=== PATIENT | male | born 1995 | race Caucasian/White ===

== ENCOUNTER 2019-03-26 16:02 | Emergency (ER) | payer SELFPAY ==
[2019-03-26 16:04] VITALS: BP 111/71; PULSE 92; RESP 18; TEMP 36.7; O2SAT 99; BMI 22.8
[2019-03-26] MEDS: Penicillin Vk 250 MG Tablet 500 MG PO (17:04)
--- NOTE | 2019-03-26 17:10 | ED.DCSUM_ITS ---
- ER Visit Summary Date of Service: 03/26/19 Chief Complaint: Facial swelling History of Present Illness: The patient is a 23 M presenting with facial swelling. Patient states this started yesterday. He has had previous dental infections. He does not currently have a dentist. He denies fever. He states he took Aleve this morning and this relieved his pain. He has had some drainage at home. Denies other complaints. Physical Examination: Vitals are stable. Patient is afebrile. Alert no acute distress. HEENT exam widespread dental decay. No areas of fluctuance. Right upper incisor tender. No sublingual edema. Mild right maxillary swelling Neck is supple. Lungs are clear and equal bilaterally. Heart is regular rate and rhythm. Skin is warm and dry. Remainder of exam is unremarkable. Emergency Department Course and Treatment: Patient is given penicillin and naproxen. Advised to follow-up with dentist. He is given a dental referral list. Advised return ED if worsening complaints. Disposition: Discharge Impression: Odontalgia, dental infection This note was generated with [employer] dictation software. It may contain incorrect words, spelling, and punctuation that were not noted in review of the chart prior to signing ED Disposition - Plan for ED Patient: Referrals: NOT,DEFINED [Primary Care Provider] -
--- NOTE | 2019-03-26 17:10 | ED.DEP ---
ED Disposition - Plan for ED Patient: Instructions: ED Abscess Dental Prescriptions: Naproxen [Naprosyn] 500 mg PO BID PRN #20 tablet Penicillin V Potassium 500 mg PO 4X/DAY #40 tablet Referrals: NOT,DEFINED [Primary Care Provider] -
== END 2019-03-26 17:24 | disposition home or self-care (01) ==
LOC: ED 17:11
PROVIDERS: Emergency Provider Emergency Medicine
DX: K04.7 Periapical abscess without sinus (principal); K08.89 Other specified disorders of teeth and supporting structures; K02.9 Dental caries, unspecified; Z72.0 Tobacco use
CPT/HCPCS: 99283

== ENCOUNTER 2019-06-13 20:19 | Emergency (ER) | payer SELFPAY ==
[2019-06-13 20:22] VITALS: BP 149/78; PULSE 100; RESP 16; TEMP 36.6; O2SAT 98; BMI 22.1
[2019-06-13 20:38] VITALS: BP 124/84; PULSE 84; RESP 16; O2SAT 97
--- NOTE | 2019-06-13 20:41 | ED.RN ---
PATIENT STATES HE HAS INTERMITTENT SYNCOPAL EPISODES WITH POSITION CHANGES. PATIENT STATES THIS HAS BEEN GOING ON SINCE HE WAS 16 BUT HAS BEEN HAPPENING FOR FREQUENTLY IN THE LAST MONTH.
--- NOTE | 2019-06-13 21:07 | ED.DCSUM_ITS ---
- ER Visit Summary Date of Service: 06/13/19 Chief Complaint: Dizziness, dental pain, and left ear pain History of Present Illness: The patient is a 24 M who presents with dizziness, left lower dental pain, and left ear pain there is been getting worse over the past 3 days. Patient states his dizziness feels like he is going to pass out. Patient states this is worse with standing. Patient states he has had several episodes of this since he has been 16 years old. Patient states this is nothing new. Patient denies any chest pain or palpitations with this. Patient states he has pain over his left lower molar area. Patient states he has sharp pain in his left ear as well. Patient denies any difficulty breathing or difficulty swallowing. Patient states he has been taking ibuprofen and Tylenol with minimal relief. Physical Examination: Vital signs are stable. Patient is afebrile. Patient is in no acute distress. Pupils are equal, round, and reactive to light bilaterally. Extraocular muscles are intact. Conjunctiva is clear. Tympanic membranes are clear bilaterally. Oral mucosa is pink and moist. There are multiple dental caries. There is tenderness over the left lower premolars and molars. There is some mild gingival edema over this area. There is no d ischarge or drainage. There is no fluctuance. There is no sublingual edema or erythema. Heart was regular rate and rhythm. Lungs are clear and equal bilaterally. Cranial nerves II through XII are intact. There are no focal motor or sensory deficits noted. Test Results: Orthostatic vital signs were obtained and were normal. Emergency Department Course and Treatment: Patient was given a dose of clindamycin and ibuprofen here. Given a prescription for clindamycin because he is unable to tolerate penicillin. Patient was instructed to follow-up with a dentist in 5 to 7 days. Patient was instructed to follow-up with his primary care physician in 5 to 7 days. Patient understood and was agreeable with the plan. All questions were answered. Disposition: Discharge home Impression: Infected dental caries This note was generated with [employer] dictation software. It may contain incorrect words, spelling, and punctuation that were not noted in review of the chart prior to signing ED Disposition - Plan for ED Patient: Disposition: Home or Assisted Living Diagnosis: Infected dental caries Instructions: Dental Cavity, HYPOTENSION, Orthostatic Referrals: Care Physician,No Primary [Primary Care Provider] - Additional Instructions: Follow-up with the dentist in 5 to 7 days for reevaluation of your dental infection and cavities
[2019-06-13] MEDS: Ibuprofen 400 MG Tablet 800 MG PO (21:13)
[2019-06-13 21:14] VITALS: BP 113/82; BP 127/80; PULSE 72; PULSE 92
[2019-06-13 22:21] VITALS: BP 109/67; PULSE 68; RESP 16; O2SAT 98
== END 2019-06-13 22:22 | disposition home or self-care (01) ==
LOC: ED 21:15
PROVIDERS: Emergency Provider Emergency Medicine
DX: K04.7 Periapical abscess without sinus (principal); K02.9 Dental caries, unspecified; R42 Dizziness and giddiness; Z72.0 Tobacco use
CPT/HCPCS: 96365; 99284; J7050; A4216

== ENCOUNTER 2021-07-28 21:14 | Emergency (ER) | payer MEDICAID, SELFPAY ==
[2021-07-28 21:17] VITALS: BP 130/86; PULSE 111; RESP 22; TEMP 36.6; O2SAT 100; BMI 19.8
--- NOTE | 2021-07-28 22:11 | EKG12_ITS ---
Test Reason : DYSRHYTHMIA Blood Pressure : / mmHG Vent. Rate : 075 BPM Atrial Rate : 075 BPM P-R Int : 146 ms QRS Dur : 086 ms QT Int : 350 ms P-R-T Axes : 067 085 066 degrees QTc Int : 390 ms Normal sinus rhythm Normal ECG Confirmed by ALEXUS AMEZCUA, LESTER ([id number]), film editor supervisor BETTY GAMBLE ([id number]) on 07/29/2021 1:27:14 PM Referred By: TAYLOR Confirmed By:LESTER VAUGHAN MD
--- NOTE | 2021-07-28 22:12 | EDS_ITS ---
HPI History of Present Illness Chief Complaint: Anxiety Informant: patient Onset/Context/Timing Onset: Hours (2) Context: Gradual Onset (But relatively quickly) Timing: Continuous Quality: Panic attack Location: All over Current Severity: Severe Associated Symptoms Associated Symptoms: Shaky, chest tightness, heart racing Narrative Narrative: Patient states he used methamphetamine earlier, no other known substance use today, states that couple hours prior to exam, she started feeling very shaky and panicky, followed by chest discomfort tightness nonpleuritic and his heart racing, feeling very shaky like I am going to . [facility] Medical History (Updated 07/29/21 @ 02:[address] Celestino Skelton MD) Anxiety Depression Substance abuse no medical history Home Medications azithromycin 250 mg PO DAILY #4 tablet 07/29/21 [Rx Last Taken Unknown] Allergy/AdvReac Type Severity Reaction Status Date / Time Penicillins AdvReac Nausea/Vom/ Verified 07/28/21 21:19 Diarrhea Social History (Updated 07/28/21 @ 22:[address] Celestino Skelton MD) Smoking Status: Current every day smoker tobacco type: cigarettes substance use type: methamphetamine ROS ROS ED Constitutional Constitutional ED: Denies chills or fever(s) Eyes Eyes: Denies change in vision or diplopia ENT ENT ED: Denies rhinorrhea or sore throat Cardiovascular Cardiovascular: Reports as per HPI, chest pain, dyspnea and palpitations; Denies irregular heart rhythm or pedal edema Respiratory/Chest Respiratory/Chest: Reports dyspnea; Denies cough Gastrointestinal Gastrointestinal: Denies abdominal pain, diarrhea, nausea or vomiting Genitourinary Genitourinary ED: Denies dysuria or hematuria Musculoskeletal Musculoskeletal: Denies back pain or neck pain Integumentary Denies abscess or rash Neurologic Neurologic: Denies headache(s), paresthesias or weakness Psychiatric Psychiatric: Denies anxiety or suicidal thoughts EXAM Physical Exam Const Vital Signs: 07/28/21 21:17 07/28/21 23:44 07/29/21 00:38 Temperature 97.9 F Temperature Source Temporal Pulse Rate 111 H Respiratory Rate 22 H 18 Blood Pressure 130/86 H Blood Pressure Mean 100 Pulse Ox 100 Oxygen Delivery Method Room Air Room Air Room Air Positive well nourished and well developed General Appearance ED: well developed and NAD HEENT Reports moist mucous membranes normocephalic and atraumatic Eyes PERRL and EOMs intact bilaterally Neck full ROM, supple and no JVD Resp normal respiratory effort and clear to auscultation bilaterally Cardio regular rate, regular rhythm and no murmurs Cardio Narrative: Mild tachycardia, 110s. No splinting with deep inspiration. GI non-tender and non-distended Auscultation: normoactive bowel sounds Palpation: soft Back/Spine no CVA tenderness General Back: other FROM Extremity normal to inspection General Extremety ED: Negative for edema, pulses abnormal or tenderness General Extremity: Negative for edema or pulses abnormal Neuro oriented x3, CN's II-XII intact bilaterally and no sensory deficits noted Sensorium / Orientation: awake and alert Motor Exam: strength 5/5 throughout Psych cooperative, denies hallucinations, denies homicidal ideation and denies suicidal ideation Psych Narrative: Extremely anxious and agitated Speech: pressured Mood & Affect: anxious Thought Content: normal thought content Skin no rashes or lesions noted and no wounds MDM MDM MDM Narrative Medical decision making narrative: Patient was given IV Ativan, on reevaluation he is much more calm and not tachypneic. His work-up however shows a significant leukocytosis, and chest x-ray that may show a right lower lobe infiltrate. His D-dimer is within normal limits, troponin is normal and EKG is normal. I think it is alfred to err on the side of caution with this substance abuser in case he aspirated. He was given IV antibiotics after blood cultures obtained, his lactate ended up coming back within normal limits and his vital signs are stable with pulse ox 100% so I think he can be treated as an outpatient I discussed with him and his significant other they are comfortable with that plan. Lab Data Attestation: I reviewed the patient's lab results. Labs: Laboratory Results - last 24 hr 07/28/21 07/28/21 07/28/21 22:12 22:12 23:15 WBC 20.4 H RBC 5.49 Hgb 17.4 H Hct 49.6 MCV 90.3 MCH 31.7 MCHC 35.1 RDW Std Deviation 39.8 RDW Coeff of Ryland 11.9 Plt Count 252 MPV 10.6 Immature Gran % (Auto) 0.400 Neut % (Auto) 72.2 H Lymph % (Auto) 17.9 L Sunflower % (Auto) 8.9 Eos % (Auto) 0.3 Baso % (Auto) 0.3 Absolute Neuts (auto) 14.7 H Absolute Lymphs (auto) 3.65 Nucleated RBC % 0 Differential Comment SEE COMMENT Diff Path Review May foll Platelet Estimate ADEQUATE RBC Morphology N CHROM Anisocytosis RARE Macrocytosis RARE Ovalocytes RARE D-Dimer Quant (PE/DVT) <= 0.27 Sodium 136 Potassium 3.4 L Chloride 100 Carbon Dioxide 19.0 L Anion Gap 17 H BUN 15 Creatinine 1.35 H Estim Creat Clear Calc 70.37 Est GFR (MDRD) Af Amer 83 Est GFR (MDRD) Non-Af 69 BUN/Creatinine Ratio 11.1 Glucose 115 H Lactic Acid Calcium 10.1 Troponin I High Sens 7 07/28/21 23:55 WBC RBC Hgb Hct MCV MCH MCHC RDW Std Deviation RDW Coeff of Ryland Plt Count MPV Immature Gran % (Auto) Neut % (Auto) Lymph % (Auto) Sunflower % (Auto) Eos % (Auto) Baso % (Auto) Absolute Neuts (auto) Absolute Lymphs (auto) Nucleated RBC % Differential Comment Diff Path Review Platelet Estimate RBC Morphology Anisocytosis Macrocytosis Ovalocytes D-Dimer Quant (PE/DVT) Sodium Potassium Chloride Carbon Dioxide Anion Gap BUN Creatinine Estim Creat Clear Calc Est GFR (MDRD) Af Amer Est GFR (MDRD) Non-Af BUN/Creatinine Ratio Glucose Lactic Acid 1.2 Calcium Troponin I High Sens Radiography Diagnostic Testing: Radiology Impression Chest X-Ray 07/28/21 22:51 IMPRESSION: Hyperinflated lungs. Right basilar opacity, may be secondary to a confluence of shadows however cannot exclude underlying atelectasis and/or pneumonia. Electronically Signed: Franny Rivas MD at 23:10 EDT Tel , Service support , Rhythm Strip Rhythm Strip: Sinus Tach Rate: 116 Ectopy: None EKG Initial EKG: Attestation: I personally reviewed and interpreted this EKG as follows: Interpretation: Sinus Rhythm (75) and No Acute Injury Pattern Discharge Plan Triage Chief Complaint: Anxiety ED Provider: Celestino Skelton Dx/Rx/DC Orders Clinical Impression: Panic attack, Pneumonia, Methamphetamine abuse Instructions: ED Drug Abuse, ED Pneumonia (Adult) Prescriptions: New azithromycin [azithromycin] 250 MG tablet 250 mg PO DAILY Qty: 4 RF: 0 Primary Care Provider: Care Physician,No Primary Referrals: Guadalupe Gracia [NON-STAFF] - 5-7 Days Care Physician,No Primary [Primary Care Provider] - [facility] [STAFF PHYSICIAN] - (as needed for addiction help) Disposition Disposition: Home, Self Care
[2021-07-28] MEDS: LORazepam 2 MG/ML Syringe 1 MG IV (22:20)
[2021-07-28 22:34] LABS: Absolute Lymphocyte Count 3.65 X10^3/uL (0.83-4.51); Absolute Neutrophil Count 14.7 X10^3/uL (2.0-7.7); Basophil# 0.07 X10^3/uL; Basophil% 0.3 % (0-1); Eosinophil# 0.06 X10^3/uL; Eosinophils% 0.3 % (0-5); Hematocrit 49.6 % (40-54); Hemoglobin 17.4 g/dL (13.0-16.5); Lymphocyte # 3.65 X10^3/ul (0.83-4.51); Lymphocyte % 17.9 % (19-41); Mean Corp Hgb Conc 35.1 g/dL (32-36); Mean Corpuscular Hgb 31.7 pg (27.0-32.0); Mean Corpuscular Volume 90.3 fL (80-94); Mean Platelet Vol. 10.6 fl (6.2-12.0); Monocyte# 1.82 X10^3/uL; Monocyte% 8.9 % (0-10); NRBC Flagged by Analyzer 0 % (0-5); Neutrophil # 14.73 X10^3/uL (2.7-7.7); Neutrophil % 72.2 % (47-70); POSITIVE DIFFERENTIAL YES; Platelet Count 252 K/mm3 (150-450); RBC Distribution Width CV 11.9 % (11.6-14.6); RBC Distribution Width SD 39.8 fl (35.1-43.9); Red Blood Count 5.49 M/mm3 (4.6-6.2); White Blood Count 20.4 K/mm3 (4.4-11.0)
[2021-07-28 22:50] LABS: Anion Gap 17 (5-15); BUN 15 mg/dL (7-18); BUN/Creat Ratio 11.1 RATIO (10-20); Calcium,Total 10.1 mg/dL (8.5-10.1); Chloride 100 mmol/L (98-107); Creatinine, Serum 1.35 mg/dL (0.70-1.30); EST Glomerular Filtration Rate 69 mL/min (>60); Est Glom Filt Rate - Afr Amer 83 mL/min (>60); Estimated Creatinine Clearance 70.37 ml/min; Glucose 115 mg/dL (74-106); Potassium 3.4 mmol/L (3.5-5.1); Sodium Level 136 mmol/L (136-145); Troponin-I HS 7 pg/mL (3.0-78.0)
--- NOTE | 2021-07-28 22:51 | RAD_ITS ---
STUDY: X-RAY CHEST REASON FOR EXAM: Male, 26 years old. Chest pain TECHNIQUE: Single frontal view of the chest. COMPARISON: None. FINDINGS: The lungs are hyperinflated. There is a right basilar opacity. Normal size heart. Normal mediastinum and sarah. Normal visualized pulmonary arteries. Normal visualized aortic arch and descending thoracic aorta. Normal visualized thoracic spine. Normal visualized ribs, clavicles, and shoulders. There is no demonstrated abnormality of the visualized soft tissue structures of the upper abdomen. RAD/Chest 1 View (Portable) IMPRESSION: Hyperinflated lungs. Right basilar opacity, may be secondary to a confluence of shadows however cannot exclude underlying atelectasis and/or pneumonia. Electronically Signed: Franny Rivas MD at 23:10 EDT Tel , Service support ,
[2021-07-28 23:11] LABS: Differential Indicated SCAN CRITERIA MET
[2021-07-28 23:12] LABS: Anisocytosis RARE; Macrocytosis RARE; Ovalocyte RARE; Platelet Estimate ADEQUATE (ADEQ); Red Cell Morphology N CHROM NORMAL (NORM C&C)
[2021-07-28 23:42] LABS: D-Dimer Quantitative (DVT/PE) <= 0.27 FEU/ug/m (0.27-0.49)
--- NOTE | 2021-07-29 00:21 | NURSING ---
pt moving all over the bed. iv got pulled out.
[2021-07-29 00:38] VITALS: RESP 18
[2021-07-29 00:47] LABS: Lactic Acid 1.2 mmol/L (0.4-1.9)
[2021-07-29 03:01] VITALS: BP 112/57; PULSE 71; RESP 20; O2SAT 98
[2021-07-29 13:42] LABS: Pathologist Review Reviewed
== END 2021-07-29 03:04 | disposition home or self-care (01) ==
PROVIDERS: Emergency Provider Emergency Medicine
DX: F41.0 Panic disorder [episodic paroxysmal anxiety] (principal); J18.9 Pneumonia, unspecified organism; F15.10 Other stimulant abuse, uncomplicated; F17.210 Nicotine dependence, cigarettes, uncomplicated
CPT/HCPCS: 71045; 80048; 83605; 84484; 85025; 85379; 87040; 93005; 96365; 96367; 96375; 99285; J7030; J7050; A4216; J0696

== ENCOUNTER 2021-08-09 20:57 | Emergency (ER) | payer MEDICAID, SELFPAY ==
[2021-08-09 20:58] VITALS: BP 115/86; PULSE 86; RESP 18; TEMP 36.3; O2SAT 99; BMI 20.4
--- NOTE | 2021-08-09 22:04 | EKG12_ITS ---
Test Reason : DYSRYTHIA Blood Pressure : / mmHG Vent. Rate : 060 BPM Atrial Rate : 060 BPM P-R Int : 166 ms QRS Dur : 090 ms QT Int : 404 ms P-R-T Axes : 000 078 076 degrees QTc Int : 404 ms Normal sinus rhythm Normal ECG Confirmed by FREDIS AMEZCUA, JENNIFER ([id number]), supervising editor news reel BETTY GAMBLE ([id number]) on 08/12/2021 10:09:45 AM Referred By: MONICA Confirmed By:JENNIFER MCNEAL MD
--- NOTE | 2021-08-09 22:05 | EDS_ITS ---
HPI History of Present Illness Chief Complaint: Anxiety Narrative Narrative: 26-year-old male who admits to doing methamphetamine last night presenting with palpitations, anxiety, sensation of shortness of breath. He denies fever or cough. Patient states that he did not do methamphetamine today. He states he was cleaning up around his house and must of come into contact with it. He states for his anxiety takes nothing long-term. He states that otherwise he is physically healthy. He states he feels like he does not have a pulse and that he is lost. [facility] Medical History Anxiety Depression Substance abuse Home Medications hydroxyzine pamoate [Vistaril] 25 mg PO TID PRN #20 cap 08/09/21 [Rx Last Taken Unknown] Allergy/AdvReac Type Severity Reaction Status Date / Time Penicillins AdvReac Nausea/Vom/ Verified 07/28/21 21:19 Diarrhea Social History Smoking Status: Current every day smoker tobacco type: cigarettes substance use type: methamphetamine ROS ROS ED Constitutional Constitutional ED: Denies chills or fever(s) Eyes Eyes: Denies blurry vision or diplopia ENT ENT ED: Denies rhinorrhea or sore throat Cardiovascular Cardiovascular: Reports palpitations and racing heartbeat Respiratory/Chest Respiratory/Chest: Reports dyspnea; Denies cough or sputum Gastrointestinal Gastrointestinal: Denies abdominal pain, nausea or vomiting Genitourinary Genitourinary ED: Denies dysuria or hematuria Musculoskeletal Musculoskeletal: Denies arthralgias or myalgias Neurologic Neurologic: Denies headache(s) or paresthesias Psychiatric Psychiatric: Reports anxiety; Denies suicidal ideation or suicidal thoughts EXAM Physical Exam Const Vital Signs: 08/09/21 20:58 08/09/21 22:32 08/09/21 22:52 Temperature 97.3 F L Temperature Source Temporal Pulse Rate 86 66 Respiratory Rate 18 12 Blood Pressure 115/86 H 110/94 H Blood Pressure Mean 95 99 Pulse Ox 99 98 Oxygen Delivery Method Room Air Room Air Room Air Positive well nourished General Appearance ED: NAD HEENT Reports moist mucous membranes Negative for trauma Eyes PERRL and EOMs intact bilaterally Chest Wall inspection of chest normal and palpation of chest normal Resp normal respiratory effort and clear to auscultation bilaterally Cardio regular rate and regular rhythm GI normal to inspection, nondistended, normoactive bowel sounds Neuro oriented x3, CN's II-XII intact bilaterally and no sensory deficits noted Sensorium / Orientation: alert Motor Exam: strength 5/5 throughout Psych Psych Narrative: Anxious Skin no rashes or lesions noted MDM MDM MDM Narrative Medical decision making narrative: Patient presenting after using methamphetamine last evening. He does not admit to using any tonight. His urine tox was positive for methamphetamine and cannabinoids which he admits to. CBC is unremarkable. Renal function electrolytes are normal. Troponin is negative. I do not believe patient's symptoms are related to cardiac issue. His constellation of symptoms is due to methamphetamine use. Chest x-ray on my interpretation shows no acute cardiopulmonary process and the radiologist does agree. EKG shows a normal sinus rhythm with a ventricular rate of 60 bpm without sign of ischemic change. Patient feels improved after eating a meal. He has a sober ride to pick him up. I believe he is safe to be discharged home at this time. I do not believe he needs any other lab work or imaging. His exfianc? requested prescription for Vistaril form for anxiety. We did discuss the use of methamphetamine and how this could be triggering his anxiety. They a cknowledge understanding. Impression: 1. Anxiety 2. Methamphetamine abuse 3. Dyspnea Lab Data Attestation: I reviewed the patient's lab results. Labs: Laboratory Results - last 24 hr 08/09/21 08/09/21 08/09/21 22:12 22:15 22:15 WBC 11.5 H RBC 5.31 Hgb 17.0 H Hct 48.7 MCV 91.7 MCH 32.0 MCHC 34.9 RDW Std Deviation 40.6 RDW Coeff of Ryland 12.0 Plt Count 236 MPV 9.9 Immature Gran % (Auto) 0.300 Neut % (Auto) 70.3 H Lymph % (Auto) 21.7 [place] % (Auto) 7.3 Eos % (Auto) 0.1 Baso % (Auto) 0.3 Absolute Neuts (auto) 8.1 H Absolute Lymphs (auto) 2.50 Nucleated RBC % 0 Sodium 138 Potassium 3.7 Chloride 103 Carbon Dioxide 27.0 Anion Gap 8 BUN 12 Creatinine 0.99 Estim Creat Clear Calc 99.11 Est GFR (MDRD) Af Amer 119 Est GFR (MDRD) Non-Af 99 BUN/Creatinine Ratio 12.1 Glucose 108 H Calcium 9.8 Troponin I High Sens 6 Urine Opiates Screen NEGATIVE Urine Methadone Screen NEGATIVE Ur Barbiturates Screen NEGATIVE Ur Phencyclidine Scrn NEGATIVE Ur Amphetamines Screen POSITIVE H U Methamphetamin-MDMA NEGATIVE U Benzodiazepines Scrn NEGATIVE Urine Cocaine Screen NEGATIVE U Cannabinoids Screen POSITIVE H Ur Drug Screen Comment Ethyl Alcohol 08/09/21 22:15 WBC RBC Hgb Hct MCV MCH MCHC RDW Std Deviation RDW Coeff of Ryland Plt Count MPV Immature Gran % (Auto) Neut % (Auto) Lymph % (Auto) [place] % (Auto) Eos % (Auto) Baso % (Auto) Absolute Neuts (auto) Absolute Lymphs (auto) Nucleated RBC % Sodium Potassium Chloride Carbon Dioxide Anion Gap BUN Creatinine Estim Creat Clear Calc Est GFR (MDRD) Af Amer Est GFR (MDRD) Non-Af BUN/Creatinine Ratio Glucose Calcium Troponin I High Sens Urine Opiates Screen Urine Methadone Screen Ur Barbiturates Screen Ur Phencyclidine Scrn Ur Amphetamines Screen U Methamphetamin-MDMA U Benzodiazepines Scrn Urine Cocaine Screen U Cannabinoids Screen Ur Drug Screen Comment Ethyl Alcohol 4.0 Discharge Plan Triage Chief Complaint: Anxiety ED Provider: Juan Lim Dx/Rx/DC Orders Instructions: ED Anxiety Reaction Prescriptions: New hydroxyzine pamoate [Vistaril] 25 mg capsule 25 mg PO TID PRN (Reason: anxiety) Qty: 20 RF: 0 Primary Care Provider: Care Physician,No Primary Referrals: Windy Parra DO [STAFF PHYSICIAN] - As Needed Care Physician,No Primary [Primary Care Provider] - Disposition Disposition: Home, Self Care
[2021-08-09 22:18] LABS: Absolute Neutrophil Count 8.1 X10^3/uL (2.0-7.7); Basophil# 0.03 X10^3/uL; Basophil% 0.3 % (0-1); Eosinophil# 0.01 X10^3/uL; Eosinophils% 0.1 % (0-5); Hematocrit 48.7 % (40-54); Lymphocyte % 21.7 % (19-41); Mean Corp Hgb Conc 34.9 g/dL (32-36); Mean Corpuscular Volume 91.7 fL (80-94); Mean Platelet Vol. 9.9 fl (6.2-12.0); Monocyte# 0.84 X10^3/uL; Monocyte% 7.3 % (0-10); NRBC Flagged by Analyzer 0 % (0-5); Neutrophil % 70.3 % (47-70); Platelet Count 236 K/mm3 (150-450); RBC Distribution Width SD 40.6 fl (35.1-43.9); Red Blood Count 5.31 M/mm3 (4.6-6.2); White Blood Count 11.5 K/mm3 (4.4-11.0)
--- NOTE | 2021-08-09 22:24 | RAD_ITS ---
HISTORY: chest pain EXAMINATION/TECHNIQUE: XR Chest 1 View: 2 image AP chest COMPARISON: July 28, 2021 FINDINGS: LINES/DEVICES: None. LUNGS: No airspace consolidation. Unremarkable interstitium. No effusion. No pneumothorax. MEDIASTINUM: No cardiomegaly. MUSCULOSKELETAL: No acute osseous finding. RAD/Chest 1 View (Portable) IMPRESSION: No evidence of acute cardiopulmonary process. at 0010 Reported and signed by: Jeff Melchor MD Electronically Signed: Jeff Melchor MD at 0:08 EDT Tel , Service support ,
[2021-08-09 22:30] LABS: Amphetamine Urine VISTA POSITIVE (<1000 ng/mL); Barbiturate Urine VISTA NEGATIVE (< 200 ng/mL); Benzodiazepine Urine VISTA NEGATIVE (< 200 ng/mL); Cocaine Urine VISTA NEGATIVE (< 300 ng/mL); Ecstacy Urine VISTA NEGATIVE (< 500 ng/mL); Methadone Urine VISTA NEGATIVE (< 300 ng/mL); PCP Urine VISTA NEGATIVE (< 25 ng/mL); THC Urine VISTA POSITIVE (< 50 ng/mL); Vista UDS pH Range 7
[2021-08-09 22:34] LABS: Anion Gap 8 (5-15); BUN 12 mg/dL (7-18); BUN/Creat Ratio 12.1 RATIO (10-20); Calcium,Total 9.8 mg/dL (8.5-10.1); Chloride 103 mmol/L (98-107); Creatinine, Serum 0.99 mg/dL (0.70-1.30); EST Glomerular Filtration Rate 99 mL/min (>60); Est Glom Filt Rate - Afr Amer 119 mL/min (>60); Estimated Creatinine Clearance 99.11 ml/min; Glucose 108 mg/dL (74-106); Potassium 3.7 mmol/L (3.5-5.1); Sodium Level 138 mmol/L (136-145); Troponin-I HS 6 pg/mL (3.0-78.0)
--- NOTE | 2021-08-09 22:43 | ED.RN ---
NO OLD EKGS
[2021-08-09 22:52] VITALS: BP 110/94; PULSE 66; RESP 12; O2SAT 98
[2021-08-10] MEDS: hydrOXYzine PAM 25 MG Capsule PO (00:02)
[2021-08-10 00:03] VITALS: BP 125/80; PULSE 74; RESP 16; O2SAT 99
== END 2021-08-10 00:04 | disposition home or self-care (01) ==
PROVIDERS: Emergency Provider Student in an Organized Health Care Education/Training Program
DX: F41.9 Anxiety disorder, unspecified (principal); F15.10 Other stimulant abuse, uncomplicated; R06.02 Shortness of breath; R00.2 Palpitations; F17.210 Nicotine dependence, cigarettes, uncomplicated
CPT/HCPCS: 71045; 80048; 80307; 82077; 84484; 85025; 93005; 99285

== ENCOUNTER 2021-08-26 18:01 | Emergency (ER) | payer MEDICAID, SELFPAY ==
[2021-08-26 18:07] VITALS: BP 133/96; PULSE 99; RESP 17; TEMP 37.2; O2SAT 98; BMI 20.6
--- NOTE | 2021-08-26 18:43 | EKG12_ITS ---
Test Reason : DYSRHYTHMIA Blood Pressure : / mmHG Vent. Rate : 079 BPM Atrial Rate : 079 BPM P-R Int : 152 ms QRS Dur : 082 ms QT Int : 328 ms P-R-T Axes : 074 083 074 degrees QTc Int : 376 ms Normal sinus rhythm Normal ECG Confirmed by FREDIS AMEZCUA, JENNIFER ([id number]), editorial cartoonist BETTY GAMBLE ([id number]) on 09/01/2021 6:34:15 AM Referred By: DILCIA Confirmed By:JENNIFER MCNEAL MD
--- NOTE | 2021-08-26 18:44 | EX.ED.DYSGE1 ---
HPI History of Present Illness Chief Complaint: Headache PFSH PFS Medical History Anxiety Depression Substance abuse Home Medications hydroxyzine pamoate [Vistaril] 25 mg PO TID PRN #20 cap 08/09/21 [Rx Last Taken Unknown] Allergy/AdvReac Type Severity Reaction Status Date / Time Penicillins AdvReac Nausea/Vom/ Verified 08/26/21 18:02 Diarrhea Social History Smoking Status: Current every day smoker tobacco type: cigarettes substance use type: methamphetamine EXAM Physical Exam Const Vital Signs: 08/26/21 18:07 Temperature 99.0 F Temperature Source Temporal Pulse Rate 99 Respiratory Rate 17 Blood Pressure 133/96 H Blood Pressure Mean 108 Pulse Ox 98 Oxygen Delivery Method Room Air Discharge Plan Triage Chief Complaint: Headache ED Provider: Chris Valle Dx/Rx/DC Orders Prescriptions: No Action hydroxyzine pamoate [Vistaril] 25 mg capsule 25 mg PO TID PRN (Reason: anxiety) Qty: 20 RF: 0 Primary Care Provider: Care Physician,No Primary
--- NOTE | 2021-08-26 18:48 | EX.ED.DYSGE1 ---
HPI History of Present Illness Chief Complaint: Headache Detail of Chief Complaint: Headache for the last 3 or 4 days Informant: patient Narrative Narrative: Patient presents to the emergency department with multiple complaints today. Patient states that she he has had a headache for the last 3 to 4 days. Patient states that he was seen in the emergency department 2 weeks ago and started on Vistaril for anxiety. Patient states that about a month ago he relapsed on meth and had anxiety related to that. Patient complains now of lightheadedness and fatigue and falling asleep yesterday while at work. Patient states that he stopped taking his Vistaril several days ago but he continues to feel poorly. He describes some chest tightness. Patient feels like he cannot get a full breath out. Patient complains of left eye twitching since the weekend. He complains of continued lightheadedness and bilateral ear pain. He describes a tightness around his head and ibuprofen is not helping the pain. Prior similar symptoms: No PFSH PFSH Medical History Anxiety Depression Substance abuse Allergy/AdvReac Type Severity Reaction Status Date / Time Penicillins AdvReac Nausea/Vom/ Verified 08/26/21 18:02 Diarrhea Social History Smoking Status: Current every day smoker tobacco type: cigarettes substance use type: methamphetamine ROS ROS ED ROS Narrative Dizziness, fatigue Constitutional Constitutional ED: Reports systems reviewed and no addt'l complaints, except as documented; Denies body ache(s), change in weight or chills Eyes Eyes: Denies acute decrease in peripheral vision, change in vision, double vision or loss of vision ENT ENT ED: Reports none; Denies ear pain, lip swelling, loss taste/smell, neck pain, otalgia or sore throat Cardiovascular Cardiovascular: Reports none and chest pain; Denies abdominal pain, chest pain with activity, leg edema, lightheadedness, palpitations, rapid heart rate or syncope Respiratory/Chest Respiratory/Chest: Reports none and dyspnea; Denies change in mental status, dry cough, hemoptysis, shortness of breath at rest or shortness of breath with exertion Gastrointestinal Gastrointestinal: Reports none; Denies abdominal pain, change in stool character, diarrhea, hematemesis, hematochezia, melena, rectal bleeding or vomiting Genitourinary Genitourinary ED: Reports none; Denies abdominal discomfort, anuria, dysuria, genital pain or polyuria Musculoskeletal Musculoskeletal: Reports none; Denies arthralgias, back pain, difficulty walking, extremity pain, muscle weakness or myalgias Integumentary Reports none; Denies abscess or rash Neurologic Neurologic: Reports none and headache(s); Denies abnormal gait, confusion, focal weakness, frequent falls, loss of vision, numbness, paresthesias, radicular pain, vertigo or weakness Psychiatric Psychiatric: Reports systems reviewed and no addt'l complaints, except as documented and none; Denies behavioral changes, confusion, difficulty concentrating, hallucinations, suicidal ideation, tactile hallucinations or visual hallucinations Endocrine Endocrinology: Denies none, cold intolerance, excessive sweating, fatigue or heat intolerance Hematologic/Lymphatic Hematologic/Lymphatic: Reports none; Denies anemia, easy bleeding or easy bruising Allergic/Immunologic Allergic/Immunologic ED: Denies as per HPI, none, lip swelling, mouth swelling, throat swelling, tongue swelling or hives EXAM Physical Exam Const Vital Signs: 08/26/21 18:07 Temperature 99.0 F Temperature Source Temporal Pulse Rate 99 Respiratory Rate 17 Blood Pressure 133/96 H Blood Pressure Mean 108 Pulse Ox 98 Oxygen Delivery Method Room Air Positive well nourished and well developed General Appearance ED: well developed and NAD HEENT Reports TM's clear and moist mucous membranes normocephalic and atraumatic; Negative for trauma or tenderness Tympanic Membrane ED: Yes TM's clear Eyes PERRL and EOMs intact bilaterally General Eye ED: Negative for pale conjunctiva or scleral icterus Neck no lymphadenopathy, supple and no JVD General: Negative for tenderness Chest Wall inspection of chest normal and palpation of chest normal Chest: Negative for tenderness Resp normal respiratory effort and clear to auscultation bilaterally Effort and Inspection: Negative for respiratory distress or pain with movement Auscultation: Negative for rhonchi, wheezes or diminished lung sounds Cardio regular rate, regular rhythm, S1 normal heart sound, S2 normal heart sound and no murmurs Peripheral Pulses: pulses 2+ throughout GI normal to inspection, nondistended, normoactive bowel sounds, soft to palpation, non-tender, non-distended and no masses Back/Spine no CVA tenderness and no thoracic nor lumbar tenderness Extremity normal to inspection General Extremety ED: Negative for edema General Extremity: Negative for edema Neuro oriented x3, CN's II-XII intact bilaterally, no sensory deficits noted and gait normal Neuro Narrative: Finger-nose and heel arriaga testing within normal limits, negative Romberg, negative for drift, fundi benign Sensorium / Orientation: awake, alert, oriented to person, oriented to place and oriented to time Motor Exam: strength 5/5 throughout and strength abnormal Psych mental status grossly normal Skin no rashes or lesions noted and no wounds MDM MDM MDM Narrative Medical decision making narrative: Patient arrival. Patient was given Reglan, Benadryl, Toradol, and a liter saline fluid bolus. His headache eventually resolved. Patient was able to sleep. His lab work-up otherwise unremarkable. I suspect a lot of his symptomatology likely related to anxiety. He had an appointment with primary care physician tomorrow. Patient has Vistaril at home and cannot tolerate Ativan therefore I will not prescribe anything further at this time for his anxiety and he will see his primary care physician tomorrow. Lab Data Attestation: I reviewed the patient's lab results. Labs: Laboratory Results - last 24 hr 08/26/21 08/26/21 18:50 18:50 WBC 10.2 RBC 5.15 Hgb 16.4 Hct 47.0 MCV 91.3 MCH 31.8 MCHC 34.9 RDW Std Deviation 40.8 RDW Coeff of Ryland 12.1 Plt Count 205 MPV 10.0 Immature Gran % (Auto) 0.300 Neut % (Auto) 74.4 H Lymph % (Auto) 19.3 [place] % (Auto) 5.6 Eos % (Auto) 0.1 Baso % (Auto) 0.3 Absolute Neuts (auto) 7.6 Absolute Lymphs (auto) 1.97 Nucleated RBC % 0 Sodium 140 Potassium 4.1 Chloride 107 Carbon Dioxide 29.0 Anion Gap 4 L BUN 9 Creatinine 1.00 Estim Creat Clear Calc 99.02 Est GFR (MDRD) Af Amer 119 Est GFR (MDRD) Non-Af 98 BUN/Creatinine Ratio 9.0 L Glucose 106 Calcium 9.3 Troponin I High Sens 6 EKG Initial EKG: Attestation: I personally reviewed and interpreted this EKG as follows: Comments: Sinus rhythm with a ventricular rate of 79 bpm with no acute ST segment changes. Discharge Plan Triage Chief Complaint: Headache ED Provider: Chris Valle Dx/Rx/DC Orders Clinical Impression: Cephalalgia, Anxiety Instructions: ED Anxiety Reaction, ED Headache Unspecified Primary Care Provider: Care Physician,No Primary Referrals: Care Physician,No Primary [Primary Care Provider] - Activity Restrictions/Additional Instructions: See your primary care physician tomorrow as you have an appointment with them. Disposition Disposition: Home, Self Care
[2021-08-26] MEDS: DiphenhydrAMINE 50 MG/ML Syringe 25 MG IV (18:56)
[2021-08-26] MEDS: 0.9% Normal Saline 1,000 ML 1000 ML IV (18:56)
[2021-08-26] MEDS: Ketorolac 30 MG/ML Syringe IV (18:57)
[2021-08-26 18:59] LABS: Absolute Lymphocyte Count 1.97 X10^3/uL (0.83-4.51); Absolute Neutrophil Count 7.6 X10^3/uL (2.0-7.7); Basophil# 0.03 X10^3/uL; Basophil% 0.3 % (0-1); Eosinophil# 0.01 X10^3/uL; Eosinophils% 0.1 % (0-5); Hemoglobin 16.4 g/dL (13.0-16.5); Lymphocyte # 1.97 X10^3/ul (0.83-4.51); Lymphocyte % 19.3 % (19-41); Mean Corp Hgb Conc 34.9 g/dL (32-36); Mean Corpuscular Hgb 31.8 pg (27.0-32.0); Mean Corpuscular Volume 91.3 fL (80-94); Monocyte# 0.57 X10^3/uL; Monocyte% 5.6 % (0-10); NRBC Flagged by Analyzer 0 % (0-5); Neutrophil # 7.61 X10^3/uL (2.7-7.7); Neutrophil % 74.4 % (47-70); Platelet Count 205 K/mm3 (150-450); RBC Distribution Width CV 12.1 % (11.6-14.6); RBC Distribution Width SD 40.8 fl (35.1-43.9); Red Blood Count 5.15 M/mm3 (4.6-6.2); White Blood Count 10.2 K/mm3 (4.4-11.0)
[2021-08-26] MEDS: Metoclopramide 10 MG/2 ML Vial IV (18:59)
[2021-08-26 19:16] LABS: Anion Gap 4 (5-15); BUN 9 mg/dL (7-18); Calcium,Total 9.3 mg/dL (8.5-10.1); Chloride 107 mmol/L (98-107); EST Glomerular Filtration Rate 98 mL/min (>60); Est Glom Filt Rate - Afr Amer 119 mL/min (>60); Estimated Creatinine Clearance 99.02 ml/min; Glucose 106 mg/dL (74-106); Potassium 4.1 mmol/L (3.5-5.1); Sodium Level 140 mmol/L (136-145); Troponin-I HS 6 pg/mL (3.0-78.0)
[2021-08-26 20:39] VITALS: BP 111/66; PULSE 75; RESP 16; O2SAT 98
== END 2021-08-26 20:40 | disposition home or self-care (01) ==
PROVIDERS: Emergency Provider Emergency Medicine
DX: R51.9 Headache, unspecified (principal); F41.9 Anxiety disorder, unspecified; F17.210 Nicotine dependence, cigarettes, uncomplicated
CPT/HCPCS: 80048; 84484; 85025; 87426; 93005; 96361; 96374; 96375; 99285; J7030

== ENCOUNTER 2021-10-26 12:11 | Emergency (ER) | payer MEDICAID, SELFPAY ==
[2021-10-26 12:11] VITALS: BP 202/187; PULSE 58; RESP 19; TEMP 35.1; O2SAT 97; BMI 20.5
--- NOTE | 2021-10-26 12:41 | CT_ITS ---
STUDY: CT ABDOMEN AND PELVIS WITHOUT CONTRAST REASON FOR EXAM: Male, 26 years old. Left flank pain. METH abuse. RADIATION DOSAGE (If Supplied By Facility): CTDIvol = ( 6.07 ) mGy, DLP = ( 309.5 ) mGycm TECHNIQUE: Transaxial images were obtained from the dome of the diaphragm to the symphysis pubis without oral contrast, and without intravenous contrast. Sagittal and coronal images were reconstructed. Individualized dose optimization techniques were used for this CT. COMPARISON: None. FINDINGS: The visualized lung bases are unremarkable. The visualized portions of the heart are within normal limits. Normal liver. Normal gallbladder and extrahepatic biliary system. Normal spleen. Normal pancreas. Normal bilateral adrenal glands. Normal right kidney. Tiny calculus in the upper and mid calyces of the left kidney. Mild degree of left hydronephrosis and left hydroureter due to a 2.5 mm calculus in the distal portion of the left ureter just proximal to the UV junction. Normal visualized stomach. Normal small intestine. Normal colon. The appendix is visualized and appears normal. Normal abdominal aorta. Normal inferior vena cava. Normal retroperitoneum. Normal urinary bladder. Normal abdominal wall. Normal osseous structures. CT/Abdomen/Pelvis without Cont IMPRESSION: 2.5 mm calculus in the distal portion of left ureter just proximal to the ureterovesical junction causing mild degree of left hydronephrosis and hydroureter. Nonobstructive tiny left intrarenal calculi. Electronically Signed: Frankie Smith MD at 13:32 EST , Service support ,
--- NOTE | 2021-10-26 12:42 | EX.ED.DYSGE1 ---
HPI History of Present Illness Chief Complaint: Flank Pain Informant: patient Onset/Context/Timing Onset: Yesterday Context: Gradual Onset Timing: Continuous Quality: Pressure Location: Left flank Worsened by: Nothing Relieved by: Nothing Narrative Narrative: Patient presents with left flank pain that began last night. Patient states it started last night and then resolved. Patient states today it has been constant. Patient states it is over the suprapubic area and left lower flank area. Patient describes it as a pressure. Patient states nothing makes it better nothing makes it worse. Patient states he is unable to find a position of comfort. Patient admits to nausea but denies any vomiting. Patient has noted some blood in his urine. Patient denies any fevers or chills. [facility] Medical History Anxiety Depression Substance abuse Home Medications hydrocodone-acetaminophen 1 tab PO Q4H PRN PRN 2 Days #10 tablet 10/26/21 [Rx Last Taken Unknown] Allergy/AdvReac Type Severity Reaction Status Date / Time Penicillins AdvReac Nausea/Vom/ Verified 10/26/21 12:13 Diarrhea Social History Smoking Status: Current every day smoker tobacco type: cigarettes substance use type: methamphetamine ROS ROS ED Constitutional Constitutional ED: Denies chills or fever(s) Eyes Eyes: Denies blurry vision or change in vision ENT ENT ED: Denies rhinorrhea or sore throat Cardiovascular Cardiovascular: Denies chest pain or palpitations Respiratory/Chest Respiratory/Chest: Denies cough or dyspnea Gastrointestinal Gastrointestinal: Reports nausea; Denies vomiting Genitourinary Genitourinary ED: Reports hematuria; Denies dysuria Musculoskeletal Musculoskeletal: Reports back pain; Denies neck pain Integumentary Denies abscess or rash Neurologic Neurologic: Denies headache(s) or weakness Allergic/Immunologic Allergic/Immunologic ED: Denies mouth swelling or urticaria EXAM Physical Exam Const Vital Signs: 10/26/21 12:11 10/26/21 15:15 Temperature 95.2 F L Temperature Source Temporal Pulse Rate 58 L 96 Respiratory Rate 19 H 14 Blood Pressure 202/187 H 127/85 H Blood Pressure Mean 192 Pulse Ox 97 97 Oxygen Delivery Method Room Air Positive well nourished and well developed General Appearance ED: well developed HEENT Reports moist mucous membranes Neck supple and no JVD Resp normal respiratory effort and clear to auscultation bilaterally Cardio regular rate, regular rhythm and no murmurs GI normal to inspection, nondistended, normoactive bowel sounds Palpation: soft and tender LLQ; Negative for guarding or rebound tenderness present Back/Spine General Back: CVA tenderness left Extremity normal to inspection General Extremety ED: Negative for edema or tenderness General Extremity: Negative for edema Neuro oriented x3, CN's II-XII intact bilaterally and no sensory deficits noted Sensorium / Orientation: alert Motor Exam: strength 5/5 throughout Psych mental status grossly normal Skin no rashes or lesions noted MDM MDM MDM Narrative Medical decision making narrative: Patient was given IV fluids, morphine, Zofran, and Toradol. CBC was within normal limits. Basic metabolic profile was within normal limits. Urinalysis shows 50-100 red blood cells. There were only 5-[address] scan of the abdomen and pelvis was obtained. There is a 2.5 mm calculus at the left distal ureter with hydronephrosis and hydroureter. This was interpreted by the radiologist and reviewed by myself. Patient is feeling better on reevaluation. Patient was given a prescription for a short course of [place]. Patient was instructed to drink plenty of fluids. Patient was instructed to follow-up with his primary care physician in 3 to 5 days. Patient was also given a referral for urology. Patient and family understood and were agreeable with the plan. All questions were answered. Lab Data Attestation: I reviewed the patient's lab results. Labs: Laboratory Results - last 24 hr 10/26/21 10/26/21 10/26/21 12:59 12:59 12:59 WBC 11.8 H RBC 5.21 Hgb 16.9 H Hct 47.9 MCV 91.9 MCH 32.4 H MCHC 35.3 RDW Std Deviation 41.7 RDW Coeff of Ryland 12.3 Plt Count 206 MPV 9.7 Immature Gran % (Auto) 0.200 Neut % (Auto) 63.0 Lymph % (Auto) 26.1 [place] % (Auto) 8.5 Eos % (Auto) 2.0 Baso % (Auto) 0.2 Absolute Neuts (auto) 7.4 Absolute Lymphs (auto) 3.07 Nucleated RBC % 0 Sodium 140 Potassium 4.1 Chloride 108 H Carbon Dioxide 26.0 Anion Gap 6 BUN 11 Creatinine 0.94 Estim Creat Clear Calc 104.95 Est GFR (MDRD) Af Amer 127 Est GFR (MDRD) Non-Af 105 BUN/Creatinine Ratio 11.8 Glucose 132 H Calcium 9.3 Urine Color Stephenie Urine Clarity Cloudy Urine pH 5.0 Ur Specific [place] 1.025 Urine Protein 30 H Urine Glucose (UA) Normal Urine Ketones 5 H Urine Occult Blood 250 H Urine Nitrite Negative Urine Bilirubin 1 H Urine Urobilinogen 1 H Ur Leukocyte Esterase 100 H Urine RBC 50-100 SEEN Urine WBC 5-10 SEEN Ur Squamous Epith Cells 0 SEEN Amorphous Sediment 3+ Urine Bacteria 2+ Urine Mucus 0 SEEN Radiography Diagnostic Testing: Clinical Impression(s) from Imaging Studies Abdomen/Pelvis CT 10/26/21 12:41 IMPRESSION: 2.5 mm calculus in the distal portion of left ureter just proximal to the ureterovesical junction causing mild degree of left hydronephrosis and hydroureter. Nonobstructive tiny left intrarenal calculi. Electronically Signed: Frankie Smith MD at 13:32 EST , Service support , Discharge Plan Triage Chief Complaint: Flank Pain ED Provider: Josep Gomez Dx/Rx/DC Orders Clinical Impression: Calculus of distal left ureter Instructions: ED Kidney Stone w/ Colic Prescriptions: New hydrocodone-acetaminophen [hydrocodone-acetaminophen] 1 TABLET tablet 1 tab PO Q4H PRN PRN (Reason: Pain) 2 Days Qty: 10 RF: 0 Primary Care Provider: Care Physician,No Primary Referrals: Josep Steele MD [STAFF PHYSICIAN] - 3-5 Days Malcom Bangura MD [STAFF PHYSICIAN] - 3-5 Days Care Physician,No Primary [Primary Care Provider] - Disposition Disposition: Home, Self Care Discharge Date/Time: 10/26/21 15:16
[2021-10-26 13:00] LABS: Mucous, Urine 0 SEEN /hpf (<or=2+); Squamous Epithelial Cells - UA 0 SEEN /hpf (0-5)
[2021-10-26 13:02] LABS: Color, Urine Amber (Yellow); Glucose, Dipstick Normal (Normal); Ketone-Dipstick 5 mg/dl (Negative); Leukocyte Esterase-Dipstick 100 /ul (Negative); Nitrite-Dipstick Negative (Negative); Occult Blood-Urine 250 /ul (Negative); Protein-Dipstick 30 mg/dl (Negative); Specific Gravity, Urine 1.025 (1.002-1.030); Urine Clarity Cloudy (Clear); Urine Urobilinogen 1 mg/dl (Normal)
[2021-10-26 13:03] LABS: Absolute Lymphocyte Count 3.07 X10^3/uL (0.83-4.51); Absolute Neutrophil Count 7.4 X10^3/uL (2.0-7.7); Basophil# 0.02 X10^3/uL; Basophil% 0.2 % (0-1); Eosinophil# 0.23 X10^3/uL; Hematocrit 47.9 % (40-54); Hemoglobin 16.9 g/dL (13.0-16.5); Lymphocyte # 3.07 X10^3/ul (0.83-4.51); Lymphocyte % 26.1 % (19-41); Mean Corp Hgb Conc 35.3 g/dL (32-36); Mean Corpuscular Hgb 32.4 pg (27.0-32.0); Mean Corpuscular Volume 91.9 fL (80-94); Mean Platelet Vol. 9.7 fl (6.2-12.0); Monocyte% 8.5 % (0-10); NRBC Flagged by Analyzer 0 % (0-5); Neutrophil # 7.44 X10^3/uL (2.7-7.7); Platelet Count 206 K/mm3 (150-450); RBC Distribution Width CV 12.3 % (11.6-14.6); RBC Distribution Width SD 41.7 fl (35.1-43.9); Red Blood Count 5.21 M/mm3 (4.6-6.2); White Blood Count 11.8 K/mm3 (4.4-11.0)
[2021-10-26] MEDS: Morphine 4 MG/ML Syringe IV (13:06)
[2021-10-26] MEDS: Ketorolac 30 MG/ML Syringe IV (13:06)
[2021-10-26] MEDS: 0.9% Normal Saline 1,000 ML 1000 ML IV (13:06)
[2021-10-26] MEDS: Ondansetron 4 MG/2 ML Vial IV (13:06)
[2021-10-26 13:11] LABS: Bacteria 2+ /hpf (None Seen); Red Blood Cells-Urine 50-100 SEEN /hpf (0-5); Urine Bilirubin Dipstick 1 mg/dL (Negative); White Blood Cells 5-10 SEEN /hpf (0-5)
[2021-10-26 13:12] LABS: Amorphous Sediment 3+
[2021-10-26 13:16] LABS: Anion Gap 6 (5-15); BUN 11 mg/dL (7-18); BUN/Creat Ratio 11.8 RATIO (10-20); Calcium,Total 9.3 mg/dL (8.5-10.1); Chloride 108 mmol/L (98-107); Creatinine, Serum 0.94 mg/dL (0.70-1.30); EST Glomerular Filtration Rate 105 mL/min (>60); Est Glom Filt Rate - Afr Amer 127 mL/min (>60); Estimated Creatinine Clearance 104.95 ml/min; Glucose 132 mg/dL (74-106); Potassium 4.1 mmol/L (3.5-5.1); Sodium Level 140 mmol/L (136-145)
--- NOTE | 2021-10-26 13:22 | CM.ED ---
SW Note Referral Source: Case Find Referral Reason: No Primary Care Physician (PCP) SW reviewed chart and noted that patient has no PCP. SW provided patient with list of [facility] and [facility] Physician List for reference No other issues or concerns voiced at this time. SW remains available for any additional needs. Plan: Provided patient with PCP information Gail WALSH
[2021-10-26 15:15] VITALS: BP 127/85; PULSE 96; RESP 14; O2SAT 97
== END 2021-10-26 15:16 | disposition home or self-care (01) ==
PROVIDERS: Emergency Provider Emergency Medicine
DX: N13.2 Hydronephrosis with renal and ureteral calculous obstruction (principal); F17.210 Nicotine dependence, cigarettes, uncomplicated
CPT/HCPCS: 74176; 80048; 81001; 85025; 96361; 96374; 96375; 99283; J7030; J7050; J2405

== ENCOUNTER 2021-11-11 18:08 | Emergency (ER) | payer MEDICAID, SELFPAY ==
[2021-11-11 18:08] VITALS: BP 144/79; PULSE 94; RESP 18; TEMP 36.7; O2SAT 99; BMI 20.5
[2021-11-11 18:44] LABS: Absolute Neutrophil Count 5.3 X10^3/uL (2.0-7.7); Basophil# 0.02 X10^3/uL; Basophil% 0.2 % (0-1); Eosinophil# 0.11 X10^3/uL; Eosinophils% 1.3 % (0-5); Hematocrit 43.6 % (40-54); Hemoglobin 15.3 g/dL (13.0-16.5); Lymphocyte % 28.5 % (19-41); Mean Corp Hgb Conc 35.1 g/dL (32-36); Mean Corpuscular Hgb 31.9 pg (27.0-32.0); Mean Platelet Vol. 9.9 fl (6.2-12.0); Monocyte# 0.59 X10^3/uL; NRBC Flagged by Analyzer 0 % (0-5); Neutrophil # 5.29 X10^3/uL (2.7-7.7); Neutrophil % 62.8 % (47-70); Platelet Count 186 K/mm3 (150-450); RBC Distribution Width CV 11.9 % (11.6-14.6); Red Blood Count 4.79 M/mm3 (4.6-6.2); White Blood Count 8.4 K/mm3 (4.4-11.0)
[2021-11-11 18:45] VITALS: BP 144/79; PULSE 94; RESP 16; TEMP 36.7; O2SAT 99
[2021-11-11 18:53] LABS: Anion Gap 4 (5-15); BUN 12 mg/dL (7-18); BUN/Creat Ratio 12.2 RATIO (10-20); Calcium,Total 9.4 mg/dL (8.5-10.1); Chloride 106 mmol/L (98-107); Creatinine, Serum 0.98 mg/dL (0.70-1.30); EST Glomerular Filtration Rate 99 mL/min (>60); Est Glom Filt Rate - Afr Amer 120 mL/min (>60); Estimated Creatinine Clearance 100.67 ml/min; Glucose 126 mg/dL (74-106); Potassium 3.7 mmol/L (3.5-5.1); Sodium Level 139 mmol/L (136-145)
[2021-11-11 19:00] LABS: Bacteria 0 SEEN /hpf (None Seen); Mucous, Urine 0 SEEN /hpf (<or=2+); Red Blood Cells-Urine 0 SEEN /hpf (0-5); Squamous Epithelial Cells - UA 0 SEEN /hpf (0-5); White Blood Cells 0 SEEN /hpf (0-5)
[2021-11-11 19:02] LABS: Color, Urine Straw (Yellow); Glucose, Dipstick Normal (Normal); Ketone-Dipstick Negative (Negative); Leukocyte Esterase-Dipstick Negative /ul (Negative); Nitrite-Dipstick Negative (Negative); Occult Blood-Urine Negative /ul (Negative); Protein-Dipstick Negative (Negative); Urine Bilirubin Dipstick Negative (Negative); Urine Clarity Clear (Clear); Urine Urobilinogen Normal (Normal); Urine pH 6.5 (5.0 - 8.0)
--- NOTE | 2021-11-11 19:03 | ED.VIS.GI ---
HPI HPI - GI History of Present Illness Chief Complaint: Abd Pain Detail of Chief Complaint: Abdominal pain that started yesterday Informant: patient Narrative Narrative: Patient presents with abdominal pain that started yesterday. Patient states that he had again this morning when he woke up. Patient went to work and he had the pain that would last for an hour or so and then resolved. He had a small bowel movement this morning. He denies urinary symptoms. Patient states that he passed a kidney stone on the left 2 weeks ago. He is not had any prior surgeries. He had some mild nausea with this pain today and no fever or vomiting. Patient states pain is worse with movement and walking. At rest he states he really does not have much pain at this time. Prior similar symptoms: No PFSH PFSH Medical History Anxiety Depression Substance abuse Allergy/AdvReac Type Severity Reaction Status Date / Time Penicillins AdvReac Nausea/Vom/ Verified 11/11/21 18:10 Diarrhea Social History Smoking Status: Current every day smoker tobacco type: cigarettes substance use type: methamphetamine ROS ROS ED Constitutional Constitutional ED: Reports systems reviewed and no addt'l complaints, except as documented; Denies body ache(s), change in weight or chills Eyes Eyes: Denies acute decrease in peripheral vision, change in vision, double vision or loss of vision ENT ENT ED: Reports none; Denies ear pain, lip swelling, loss taste/smell, neck pain, otalgia or sore throat Cardiovascular Cardiovascular: Reports none; Denies abdominal pain, chest pain with activity, leg edema, lightheadedness, palpitations, rapid heart rate or syncope Respiratory/Chest Respiratory/Chest: Reports none; Denies change in mental status, dry cough, dyspnea, hemoptysis, shortness of breath at rest or shortness of breath with exertion Gastrointestinal Gastrointestinal: Reports none, abdominal pain and nausea; Denies change in stool character, diarrhea, hematemesis, hematochezia, melena, rectal bleeding or vomiting Genitourinary Genitourinary ED: Reports none; Denies abdominal discomfort, anuria, dysuria, genital pain or polyuria Musculoskeletal Musculoskeletal: Reports none; Denies arthralgias, back pain, difficulty walking, extremity pain, muscle weakness or myalgias Integumentary Reports none; Denies abscess or rash Neurologic Neurologic: Reports none; Denies abnormal gait, confusion, focal weakness, frequent falls, headache(s), loss of vision, numbness, paresthesias, radicular pain, vertigo or weakness Psychiatric Psychiatric: Reports systems reviewed and no addt'l complaints, except as documented and none; Denies behavioral changes, confusion, difficulty concentrating, hallucinations, suicidal ideation, tactile hallucinations or visual hallucinations Endocrine Endocrinology: Denies none, cold intolerance, excessive sweating, fatigue or heat intolerance Hematologic/Lymphatic Hematologic/Lymphatic: Reports none; Denies anemia, easy bleeding or easy bruising Allergic/Immunologic Allergic/Immunologic ED: Denies as per HPI, none, lip swelling, mouth swelling, throat swelling, tongue swelling or hives EXAM Physical Exam Const Vital Signs: 11/11/21 18:08 11/11/21 18:45 Temperature 98.0 F 98.0 F Temperature Source Temporal Oral Pulse Rate 94 94 Respiratory Rate 18 16 Blood Pressure 144/79 H 144/79 H Blood Pressure Mean 100 100 Pulse Ox 99 99 Oxygen Delivery Method Room Air Room Air Positive well nourished and well developed General Appearance ED: well developed and NAD HEENT Reports TM's clear and moist mucous membranes normocephalic and atraumatic; Negative for trauma or tenderness Tympanic Membrane ED: Yes TM's clear Eyes PERRL and EOMs intact bilaterally General Eye ED: Negative for pale conjunctiva or scleral icterus Neck no lymphadenopathy, supple and no JVD General: Negative for tenderness Chest Wall inspection of chest normal and palpation of chest normal Chest: Negative for tenderness Resp normal respiratory effort and clear to auscultation bilaterally Effort and Inspection: Negative for respiratory distress or pain with movement Auscultation: Negative for rhonchi, wheezes or diminished lung sounds Cardio regular rate, regular rhythm, S1 normal heart sound, S2 normal heart sound and no murmurs Peripheral Pulses: pulses 2+ throughout GI normal to inspection, nondistended, normoactive bowel sounds, soft to palpation, non-distended and no masses GI Narrative: Mild tenderness to the right lower quadrant on deep palpation. There is no rebound, rigidity, or peritoneal signs. Back/Spine no CVA tenderness and no thoracic nor lumbar tenderness Extremity normal to inspection General Extremety ED: Negative for edema General Extremity: Negative for edema Neuro oriented x3, CN's II-XII intact bilaterally, no sensory deficits noted and gait normal Sensorium / Orientation: awake, alert, oriented to person, oriented to place and oriented to time Motor Exam: strength 5/5 throughout and strength abnormal Psych mental status grossly normal Skin no rashes or lesions noted and no wounds MDM MDM MDM Narrative Medical decision making narrative: IV line established on arrival. Patient did not want anything for pain. Basic labs were unremarkable. CT flank obtained showed no significant disease process. At this point he is resting comfortably. I will discharge him home. Patient advised to return if worsening pain, fever, vomiting, or condition should worsen anyway. Lab Data Attestation: I reviewed the patient's lab results. Labs: Laboratory Results - last 24 hr 11/11/21 11/11/21 11/11/21 18:34 18:34 18:54 WBC 8.4 RBC 4.79 Hgb 15.3 Hct 43.6 MCV 91.0 MCH 31.9 MCHC 35.1 RDW Std Deviation 40.0 RDW Coeff of Ryland 11.9 Plt Count 186 MPV 9.9 Immature Gran % (Auto) 0.200 Neut % (Auto) 62.8 Lymph % (Auto) 28.5 [place] % (Auto) 7.0 Eos % (Auto) 1.3 Baso % (Auto) 0.2 Absolute Neuts (auto) 5.3 Absolute Lymphs (auto) 2.40 Nucleated RBC % 0 Sodium 139 Potassium 3.7 Chloride 106 Carbon Dioxide 29.0 Anion Gap 4 L BUN 12 Creatinine 0.98 Estim Creat Clear Calc 100.67 Est GFR (MDRD) Af Amer 120 Est GFR (MDRD) Non-Af 99 BUN/Creatinine Ratio 12.2 Glucose 126 H Calcium 9.4 Urine Color Straw Urine Clarity Clear Urine pH 6.5 Ur Specific [place] 1.020 Urine Protein Negative Urine Glucose (UA) Normal Urine Ketones Negative Urine Occult Blood Negative Urine Nitrite Negative Urine Bilirubin Negative Urine Urobilinogen Normal Ur Leukocyte Esterase Negative Urine RBC 0 SEEN Urine WBC 0 SEEN Ur Squamous Epith Cells 0 SEEN Urine Bacteria 0 SEEN Urine Mucus 0 SEEN Radiography Diagnostic Testing: Clinical Impression(s) from Imaging Studies Abdomen/Pelvis CT 11/11/21 19:18 IMPRESSION: 1. Resolution of the previous LEFT hydronephrosis, previous obstructing LEFT ureteral stone is not present. 2. Small 1 to 2 mm nonobstructing RIGHT renal calcification noted. No obstructive changes on the RIGHT. 3. Normal bowel gas pattern, no obstruction, free fluid or free air. No evidence diverticulitis. No evidence of appendicitis. 4. No evidence of radiodense gallstones. Electronically Signed: Erasmo Cantor MD at 20:35 EST Tel , Service support , Discharge Plan Triage Chief Complaint: Abd Pain ED Provider: Chris Valle Dx/Rx/DC Orders Clinical Impression: Abdominal pain Instructions: ED Abdominal Pain Unkn Cause Male... Primary Care Provider: Care Physician,No Primary Referrals: Josep Steele MD [STAFF PHYSICIAN] - 3-5 Days Care Physician,No Primary [Primary Care Provider] - Disposition Disposition: Home, Self Care
--- NOTE | 2021-11-11 19:18 | CT_ITS ---
INDICATION: right abdominal pain EXAMINATION: CT ABDOMEN AND PELVIS WITHOUT CONTRAST - CT Abdomen And Pelvis W/O Contrast Injection TECHNIQUE: Helically acquired images were obtained of the abdomen and pelvis without oral or IV contrast. A radiation dose optimization technique was used for this scan. IV Contrast dosage and agent: None. Oral contrast: None. COMPARISON: 10/26/2021 FINDINGS: LOWER CHEST: Lung bases are clear. No cardiomegaly or pericardial effusion. LIVER: Normal in size configuration and density on noncontrast exam. Scattered calcifications are present consistent with granulomatous changes.. No focal mass. GALLBLADDER AND BILIARY TREE: No calcified gallstones. No gallbladder distension or wall edema. No intra- or extrahepatic biliary ductal dilation. PANCREAS: No focal cystic or solid mass. SPLEEN: Normal size without focal cystic or solid mass. ADRENAL GLANDS: No nodules. KIDNEYS AND URETERS: Kidneys have normal configuration. There is a faint nonobstructing calcification in the RIGHT kidney measuring approximately 1 to 2 mm. No evidence of hydronephrosis or hydroureter. The previous LEFT ureteral stone is not present on current exam. No hydronephrosis. PERITONEUM: No ascites or free air. No other fluid collection. BOWEL: No evidence of acute appendicitis. No stomach or bowel distension. No focal inflammatory change. LYMPH NODES: No enlarged mesenteric or retroperitoneal lymph nodes. VESSELS: Aorta is non-dilated. URINARY BLADDER: Unremarkable. REPRODUCTIVE ORGANS: No pelvic masses. ABDOMINAL WALL: No discrete abdominal or pelvic wall hernia. BONES: No lytic or blastic abnormality. CT/Abdomen/Pelvis without Cont IMPRESSION: 1. Resolution of the previous LEFT hydronephrosis, previous obstructing LEFT ureteral stone is not present. 2. Small 1 to 2 mm nonobstructing RIGHT renal calcification noted. No obstructive changes on the RIGHT. 3. Normal bowel gas pattern, no obstruction, free fluid or free air. No evidence diverticulitis. No evidence of appendicitis. 4. No evidence of radiodense gallstones. Electronically Signed: Erasmo Cantor MD at 20:35 EST Tel , Service support ,
[2021-11-11 21:07] VITALS: BP 128/64; PULSE 72; RESP 16; TEMP 37.2; O2SAT 97
== END 2021-11-11 21:08 | disposition home or self-care (01) ==
PROVIDERS: Emergency Provider Emergency Medicine
DX: R10.9 Unspecified abdominal pain (principal); Z87.442 Personal history of urinary calculi; R11.0 Nausea; F17.210 Nicotine dependence, cigarettes, uncomplicated
CPT/HCPCS: 74176; 80048; 81001; 85025; 99283; A4216

== ENCOUNTER 2022-09-15 16:22 | Emergency (ER) | payer MEDICAID, SELFPAY ==
[2022-09-15 16:23] VITALS: BP 140/92; PULSE 90; RESP 16; TEMP 36.8; O2SAT 99; BMI 21.2
[2022-09-15 16:56] VITALS: BP 123/88; PULSE 79; RESP 77; O2SAT 100
[2022-09-15 17:08] VITALS: BP 113/85; BP 115/89; BP 118/89; PULSE 58; PULSE 65; PULSE 76
--- NOTE | 2022-09-15 17:18 | RAD_ITS ---
EXAM: XR CHEST, 1 VIEW CLINICAL INDICATION: chest pain TECHNIQUE: Frontal view of the chest. This report was created using [employer] report generation technology. COMPARISON: 08/09/2021. FINDINGS: LUNGS AND PLEURAL SPACES: Unremarkable. No consolidation or edema. No pneumothorax. No effusion. HEART: Unremarkable. Cardiac silhouette not enlarged. MEDIASTINUM: Central airways and mediastinal contour are unremarkable. BONES/JOINTS: Unremarkable. No displaced fracture. No destructive or sclerotic lesions. Visualized joint spaces are unremarkable. SOFT TISSUES: Unremarkable. RAD/Chest 1 View (Portable) IMPRESSION: No acute cardiopulmonary disease. Electronically Signed: Julia Stearns MD at 18:37 EDT Reading Location ID and State: [id number] / Tel , Service support ,
[2022-09-15] MEDS: Aspirin 81 MG TAB.CHEW 324 MG PO (17:30)
--- NOTE | 2022-09-15 17:31 | EX.ED.DYSGE1 ---
HPI History of Present Illness Chief Complaint: General Illness Narrative Narrative: 27-year-old male presenting with multiple symptoms. He states he does not have a primary care provider. He states that he feels high all of the time. Patient states he does smoke marijuana. He uses this for his anxiety. He states he does have a history of anxiety/PTSD and needs a history of drug abuse in the past. He states he no longer uses drugs. He states he does not take his anxiety medications anymore and has stopped these about a year ago. He does not know what these were. He states what ever they used to get me. He states he had issues with taking too many because of his addiction issues. Patient denies alcohol abuse. Patient does state that for the last 2 weeks he has been waking up with cold sweats. He has intermittent chest pressure in the left side of his chest. He feels if he stands too long he might get lightheaded. He has trouble bending over because he feels like he is lightheaded. He states I am supposed to have a history of syncope. He denies fever, cough. He is not having any nausea or vomiting. No diarrhea or constipation. No abdominal pain. Patient also reports I smoke like a chimney. He also states that I do not drink enough water. No history of DVT/PE and no risk factors. No history of cardiac disease. No risk factors for this either. [facility] Medical History Anxiety Depression Substance abuse Allergy/AdvReac Type Severity Reaction Status Date / Time Penicillins AdvReac Nausea/Vom/ Verified 09/15/22 16:25 Diarrhea Social History Smoking Status: Current every day smoker tobacco type: cigarettes substance use type: methamphetamine ROS ROS ED Constitutional Constitutional ED: Denies chills or fever(s) Eyes Eyes: Denies change in vision or diplopia ENT ENT ED: Denies rhinorrhea or sore throat Cardiovascular Cardiovascular: Reports chest pain and palpitations Respiratory/Chest Respiratory/Chest: Denies cough or dyspnea Gastrointestinal Gastrointestinal: Denies abdominal pain, nausea or vomiting Genitourinary Genitourinary ED: Denies dysuria or hematuria Musculoskeletal Musculoskeletal: Denies arthralgias or back pain Integumentary Denies abscess or Abrasions Neurologic Neurologic: Denies headache(s) Psychiatric Psychiatric: Reports anxiety EXAM Physical Exam Const Vital Signs: 09/15/22 16:23 09/15/22 16:56 09/15/22 16:56 Temperature 98.2 F Temperature Source Temporal Pulse Rate 90 79 Pulse Rate [Lying] Pulse Rate [Sitting (for 1 minute prior to obtaining)] Pulse Rate [Standing (for 1 minute prior to obtaining)] Respiratory Rate 16 77 H Respiratory Effort Normal Non-Labored Respiratory Pattern Normal Blood Pressure 140/92 H 123/88 H Blood Pressure [Lying] Blood Pressure [Sitting (for 1 minute prior to obtaining)] Blood Pressure [Standing (for 1 minute prior to obtaining)] Blood Pressure Mean 108 99 Blood Pressure Mean [Lying] Blood Pressure Mean [Sitting (for 1 minute prior to obtaining)] Blood Pressure Mean [Standing (for 1 minute prior to obtaining)] Pulse Ox 99 100 Oxygen Delivery Method Room Air Room Air 09/15/22 17:32 09/15/22 17:08 09/15/22 18:23 Temperature Temperature Source Pulse Rate 68 Pulse Rate [Lying] 58 L Pulse Rate [Sitting (for 1 minute prior to obtaining)] 65 Pulse Rate [Standing (for 1 minute prior to obtaining)] 76 Respiratory Rate 21 H Respiratory Effort Respiratory Pattern Blood Pressure 107/75 Blood Pressure [Lying] 113/85 H Blood Pressure [Sitting (for 1 minute prior to obtaining)] 118/89 H Blood Pressure [Standing (for 1 minute prior to obtaining)] 115/89 H Blood Pressure Mean 85 Blood Pressure Mean [Lying] 94 Blood Pressure Mean [Sitting (for 1 minute prior to obtaining)] 98 Blood Pressure Mean [Standing (for 1 minute prior to obtaining)] 97 Pulse Ox 99 Oxygen Delivery Method Room Air Room Air 09/15/22 20:04 Temperature Temperature Source Pulse Rate 58 L Pulse Rate [Lying] Pulse Rate [Sitting (for 1 minute prior to obtaining)] Pulse Rate [Standing (for 1 minute prior to obtaining)] Respiratory Rate 20 H Respiratory Effort Respiratory Pattern Blood Pressure 112/81 H Blood Pressure [Lying] Blood Pressure [Sitting (for 1 minute prior to obtaining)] Blood Pressure [Standing (for 1 minute prior to obtaining)] Blood Pressure Mean 91 Blood Pressure Mean [Lying] Blood Pressure Mean [Sitting (for 1 minute prior to obtaining)] Blood Pressure Mean [Standing (for 1 minute prior to obtaining)] Pulse Ox 97 Oxygen Delivery Method Room Air Positive well nourished General Appearance ED: NAD; Negative for pallor HEENT Reports moist mucous membranes Mouth ED: Yes lips normal and Yes salivary gland normal Mouth: lips normal and salivary gland normal Teeth and Gingiva: caries and poor dentition Throat: posterior oropharynx normal, tonsils normal and uvula midline Eyes PERRL and EOMs intact bilaterally Neck no lymphadenopathy and no JVD Chest Wall inspection of chest normal Resp normal respiratory effort Auscultation: Negative for rales, rhonchi or wheezes Cardio regular rate and regular rhythm GI normal to inspection, nondistended, normoactive bowel sounds Back/Spine no CVA tenderness Neuro oriented x3, CN's II-XII intact bilaterally and no sensory deficits noted Sensorium / Orientation: alert Motor Exam: strength 5/5 throughout Psych mental status grossly normal Skin no rashes or lesions noted and no wounds General Skin Exam: Negative for jaundice or pallor MDM MDM MDM Narrative Medical decision making narrative: Patient presenting with some anxiety symptoms and chest pain. He states that comes and goes. He has a history of anxiety and does not take his medications and in lieu of this he smokes marijuana. Patient states he also feels like he is lightheaded and going to faint and states he might have a history of syncope. I obtained orthostatic vital signs and these are normal. He is PERC negative. EKG was obtained and on my interpretation shows a normal sinus rhythm with a ventricular rate of [address] elevation or depression. No dysrhythmia. Chest x-ray on my interpretation shows no acute cardiopulmonary process and the radiologist services and agrees. Renal function electrolytes are normal. Urine drug screen positive for cannabinoids which patient admits to. I did have social work come by and speak with him and it sounds like he does have worsening anxiety and she was able to give him some of information on outpatient care for this. Patient discharged in stable condition. Impression: 1 chest pain noncardiac 2. Anxiety 3. Lightheadedness Lab Data Attestation: I reviewed the patient's lab results. Labs: Laboratory Results - last 24 hr 09/15/22 09/15/22 09/15/22 17:30 17:30 18:10 WBC 8.1 RBC 4.85 Hgb 15.7 Hct 42.9 MCV 88.5 MCH 32.4 H MCHC 36.6 H RDW Std Deviation 37.6 RDW Coeff of [place] 11.8 Plt Count 167 MPV 10.5 Immature Gran % (Auto) 0.200 Neut % (Auto) 60.6 Lymph % (Auto) 31.1 [place] % (Auto) 6.8 Eos % (Auto) 0.9 Baso % (Auto) 0.4 Absolute Neuts (auto) 4.9 Absolute Lymphs (auto) 2.52 Nucleated RBC % 0 Sodium 139 Potassium 3.6 Chloride 108 H Carbon Dioxide 25.0 Anion Gap 6 BUN 16 Creatinine 0.99 Estim Creat Clear Calc 102.45 Est GFR (MDRD) Af Amer 118 Est GFR (MDRD) Non-Af 97 BUN/Creatinine Ratio 16.1 Glucose 96 Calcium 9.0 Troponin I High Sens 5 Urine Opiates Screen NEGATIVE Urine Methadone Screen NEGATIVE Ur Barbiturates Screen NEGATIVE Ur Phencyclidine Scrn NEGATIVE Ur Amphetamines Screen NEGATIVE MDMA (Ecstasy) Screen NEGATIVE U Benzodiazepines Scrn NEGATIVE Urine Cocaine Screen NEGATIVE U Cannabinoids Screen POSITIVE H Ur Drug Screen Comment Radiography Diagnostic Testing: Clinical Impression(s) from Imaging Studies Chest X-Ray 09/15/22 17:18 IMPRESSION: No acute cardiopulmonary disease. Electronically Signed: Julia Stearns MD at 18:37 EDT Reading Location ID and State: [id number] / Tel , Service support , Discharge Plan Triage Chief Complaint: General Illness ED Provider: Juan Lim Dx/Rx/DC Orders Primary Care Provider: Care Physician,No Primary Referrals: Care Physician,No Primary [Primary Care Provider] -
[2022-09-15 17:46] LABS: Absolute Lymphocyte Count 2.52 X10^3/uL (0.83-4.51); Absolute Neutrophil Count 4.9 X10^3/uL (2.0-7.7); Basophil# 0.03 X10^3/uL; Basophil% 0.4 % (0-1); Eosinophil# 0.07 X10^3/uL; Eosinophils% 0.9 % (0-5); Hematocrit 42.9 % (40-54); Hemoglobin 15.7 g/dL (13.0-16.5); Lymphocyte # 2.52 X10^3/ul (0.83-4.51); Lymphocyte % 31.1 % (19-41); Mean Corp Hgb Conc 36.6 g/dL (32-36); Mean Corpuscular Hgb 32.4 pg (27.0-32.0); Mean Corpuscular Volume 88.5 fL (80-94); Mean Platelet Vol. 10.5 fl (6.2-12.0); Monocyte# 0.55 X10^3/uL; Monocyte% 6.8 % (0-10); NRBC Flagged by Analyzer 0 % (0-5); Neutrophil % 60.6 % (47-70); Platelet Count 167 K/mm3 (150-450); RBC Distribution Width CV 11.8 % (11.6-14.6); RBC Distribution Width SD 37.6 fl (35.1-43.9); Red Blood Count 4.85 M/mm3 (4.6-6.2); White Blood Count 8.1 K/mm3 (4.4-11.0)
[2022-09-15 18:00] LABS: Anion Gap 6 (5-15); BUN 16 mg/dL (7-18); BUN/Creat Ratio 16.1 RATIO (10-20); Chloride 108 mmol/L (98-107); Creatinine, Serum 0.99 mg/dL (0.70-1.30); EST Glomerular Filtration Rate 97 mL/min (>60); Est Glom Filt Rate - Afr Amer 118 mL/min (>60); Estimated Creatinine Clearance 102.45 ml/min; Glucose 96 mg/dL (74-106); Potassium 3.6 mmol/L (3.5-5.1); Sodium Level 139 mmol/L (136-145); Troponin-I HS 5 pg/mL (3.0-78.0)
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
[2022-09-15 18:23] VITALS: BP 107/75; PULSE 68; RESP 21; O2SAT 99
[2022-09-15 18:55] LABS: Amphetamine Urine VISTA NEGATIVE (<1000 ng/mL); Barbiturate Urine VISTA NEGATIVE (< 200 ng/mL); Benzodiazepine Urine VISTA NEGATIVE (< 200 ng/mL); Cocaine Urine VISTA NEGATIVE (< 300 ng/mL); Ecstacy Urine VISTA NEGATIVE (< 500 ng/mL); Methadone Urine VISTA NEGATIVE (< 300 ng/mL); PCP Urine VISTA NEGATIVE (< 25 ng/mL); THC Urine VISTA POSITIVE (< 50 ng/mL); Vista UDS pH Range 6
[2022-09-15 20:04] VITALS: BP 112/81; PULSE 58; RESP 20; O2SAT 97
[2022-09-15 21:28] VITALS: BP 119/74; PULSE 63; RESP 16; O2SAT 98
== END 2022-09-15 21:29 | disposition home or self-care (01) ==
PROVIDERS: Emergency Provider Student in an Organized Health Care Education/Training Program; Visit Provider Student in an Organized Health Care Education/Training Program
DX: R07.89 Other chest pain (principal); F41.9 Anxiety disorder, unspecified; R42 Dizziness and giddiness; F12.10 Cannabis abuse, uncomplicated; F17.210 Nicotine dependence, cigarettes, uncomplicated
CPT/HCPCS: 71045; 80048; 80307; 84484; 85025; 93005; 99285; A4216

== ENCOUNTER 2024-03-21 12:43 | Emergency (ER) | payer MEDICAID, SELFPAY ==
[2024-03-21 12:43] VITALS: BP 120/85; PULSE 87; RESP 19; TEMP 36.6; O2SAT 99; BMI 19.3
[2024-03-21 14:00] VITALS: BP 113/82; PULSE 70; RESP 18; O2SAT 98
--- NOTE | 2024-03-21 14:10 | EDS_ITS ---
HPI History of Present Illness Chief Complaint: Dental Informant: patient Onset/Context/Timing Onset: - (Dental decay and cavities for years.) Context: Gradual Onset Timing: Continuous Current Severity: Severe Maximum Severity: Severe Narrative Narrative: 28-year-old male has bad dental cavities and decay. Saw nurse practitioner in urgent care and was sent to the ER. He said this has been going on years. Has not specifically different or worse today. He denies any other complaint such as fever or chills. No facial swelling. No trouble swallowing or breathing. Prior similar symptoms: Yes Recent Illness/Hospitalization: No PFSH PFSH Medical History Anxiety Depression Substance abuse Home Medications penicillin V potassium 500 mg tablet 500 mg PO 4X/DAY #40 tabs 03/21/24 [Rx Last Taken Unknown] Allergy/AdvReac Type Severity Reaction Status Date / Time Penicillins AdvReac Nausea/Vom/ Verified 09/15/22 16:25 Diarrhea Social History Smoking Status: Light Smoker (<10/day) substance use type: methamphetamine ROS ROS ED ROS Narrative Denies recent illness. Review of Systems ROS Unobtainable: Denies due to encephalopathy Constitutional Constitutional ED: Denies chills or fever(s) Eyes Eyes: Denies blurry vision ENT ENT ED: Denies ear pain Cardiovascular Cardiovascular: Denies chest pain or palpitations Respiratory/Chest Respiratory/Chest: Denies cough or dyspnea Gastrointestinal Gastrointestinal: Denies abdominal pain, constipation, diarrhea, melena, nausea or vomiting Genitourinary Genitourinary ED: Denies dysuria or hematuria Musculoskeletal Musculoskeletal: Denies arthralgias Integumentary Denies abscess Neurologic Neurologic: Denies headache(s) Psychiatric Psychiatric: Denies anxiety Endocrine Endocrinology: Denies cold intolerance Hematologic/Lymphatic Hematologic/Lymphatic: Denies easy bleeding or easy bruising Allergic/Immunologic Allergic/Immunologic ED: Denies mouth swelling, tongue swelling or urticaria EXAM Physical Exam Narrative Exam Narrative: 22-year-old male no acute distress vital signs stable afebrile. Sitting upright in bed. Clinically looks well. H EENT exam very poor dentition. Multiple missing teeth. All his teeth are decaying have large cavity some eroded down to the gumline. There is gingival swelling. No obvious abscess. No facial swelling. No trismus. Able to open close his mouth on any difficulty. No trouble swallowing or breathing. No drooling or stridor. No David's angina. Neck nontender no lymphadenopathy. Lungs clear. Heart regular rate and rhythm no murmur. Abdomen soft nontender. Otherwise exam normal. Const Vital Signs: 03/21/24 12:43 03/21/24 13:57 03/21/24 14:00 Temperature 97.9 F Temperature Source Temporal Pulse Rate 87 70 Respiratory Rate 19 H 18 Respiratory Pattern Normal Blood Pressure 120/85 H 113/82 H Blood Pressure Mean 96 92 Pulse Ox 99 98 Oxygen Delivery Method Room Air Positive well nourished and well developed; Negative for obese, cachectic, contractures or unkempt General Appearance ED: well developed and NAD; Negative for unkempt, cachectic, contractures or pallor Nutritional Appearance: Negative for cachectic or obese HEENT Negative for trauma or tenderness Face and Sinus: sinuses nontender Mouth ED: Yes lips normal, Yes tongue normal, Yes salivary gland normal, No mouth trauma and Yes oral and palatal mucosa abnormal Mouth: lips normal, tongue normal, salivary gland normal, No mouth trauma and oral and palatal mucosa abnormal Teeth and Gingiva: caries, gingiva abnormal, poor dentition and teeth discoloration Throat: posterior oropharynx normal Eyes PERRL and EOMs intact bilaterally General Eye ED: Negative for pale conjunctiva or scleral icterus Neck no lymphadenopathy, supple and no JVD General: normal visual inspection; Negative for anterior neck swelling, tenderness or submandibular swelling Lymph Lymphatic: no lymphadenopathy noted; Negative for lymphadenopathy Chest Wall inspection of chest normal and palpation of chest normal Chest: Negative for other Resp normal respiratory effort, no retractions and clear to auscultation bilaterally Effort and Inspection: Negative for other Cardio regular rate, regular rhythm, S1 normal heart sound, S2 normal heart sound and no murmurs Jugular Venous Distention: Negative for other Palpation: Negative for palpable S3 or palpable S4 Rate: Negative for bradycardia or tachycardic Rhythm: Negative for abnormal rhythm GI normal to inspection, nondistended, normoactive bowel sounds, non-tender, non- distended and no masses Inspection: Negative for other Palpation: soft Bladder / Kidney Exam: No other Back/Spine no CVA tenderness General Back: Negative for CVA tenderness Cervical Spine: Negative for other Thoracic Spine / Upper Back: Negative for thoracic spinal tenderness or paraspinal muscle tenderness Extremity normal to inspection and no joint enlargement General Extremety ED: Negative for edema or other findings General Extremity: Negative for edema or other findings Neuro oriented x3, CN's II-XII intact bilaterally, moves all extremities and no focal motor deficits Sensorium / Orientation: alert, oriented to person, oriented to place and oriented to time; Negative for orientation impaired Motor Exam: strength 5/5 throughout Psych mental status grossly normal Appearance: Negative for unkempt Attitude: No agitated Mood & Affect: Negative for depressed, anxious or tearful Skin no rashes or lesions noted and no wounds General Skin Exam: Negative for pallor MDM MDM MDM Narrative Medical decision making narrative: 28-year-old male with severeDecay and cavities. Gingivitis. There is no drainable abscess. No trismus. No trouble swallowing or breathing. To be started on Pen-Vee K 500 4 times daily for 10 days. Follow-up with a dentist. Because insurance and get set up with a dentist through his insurance network. Clinically looks well. Discharge Plan Triage Chief Complaint: Dental ED Provider: Adams Weir Dx/Rx/DC Orders Clinical Impression: Dental caries, Gingivitis Instructions: ED Dental Cavity Prescriptions: New penicillin V potassium 500 mg tablet 500 mg PO 4X/DAY Qty: 40 0RF Primary Care Provider: Care Physician,No Primary Referrals: [facility] [Non-Staff] - As soon as possible Care Physician,No Primary [Primary Care Provider] - Activity Restrictions/Additional Instructions: Warm salt water gargling or rinses for your mouth. The antibiotic penicillin 4 times a day till gone. Call your insurance to get a list of the dental carriers they contract with and follow-up with one of them. You could also try the [facility] here in [place] or [facility] as a dental clinic also. Motrin and Tylenol for pain. Disposition Disposition: Home, Self Care
[2024-03-21] MEDS: Penicillin Vk 250 MG Tablet 500 MG PO (14:20)
[2024-03-21 14:21] VITALS: BP 118/87; PULSE 61; RESP 16; TEMP 36.8; O2SAT 99
== END 2024-03-21 14:23 | disposition home or self-care (01) ==
PROVIDERS: Emergency Provider Emergency Medicine; Visit Provider Emergency Medicine
DX: K02.9 Dental caries, unspecified (principal); F17.200 Nicotine dependence, unspecified, uncomplicated; K05.10 Chronic gingivitis, plaque induced
CPT/HCPCS: 99283